=== PATIENT | male | born 1940 | race Caucasian/White ===

== ENCOUNTER 2019-03-03 11:00 | Day surgery (SDC) | payer MEDICARE, OTHER ==
[~2019-03-03] VITALS: Ht 167.6 cm; Wt 87.5 kg
[~2019-03-03 11:00] MED LIST: ASPIRIN EC81 MG PO; DILTIAZEM ER240 MG PO; GLUCOSAMINE1000 MG PO; HAWTHORN BERRY500 MG PO; HORSE CHESTNUT300 MG PO; LEVETIRACETAM500 MG PO; LEVOTHYROXINE75 MCG PO; LISINOPRIL10 MG PO; LUTEIN20 MG PO; MELATONIN10 MG PO; MULTI VITAMIN1 EACH PO; PRAVACHOL40 MG PO; SAW PALMETTO80 MG PO
[2019-03-03] MEDS ORDERED: ASPIR-LOW81 MG PO (12:22)
--- NOTE | 2019-03-03 15:44 | NUR ---
03/03/19 1544 Maureen Clancy 1532- PT ARRIVES TO PACU ALERT AND ORIENTED. RESP EVEN AND UNLABORED. OXYGEN SAT HIGH 90'S TO 100% ON 3L VIA NC. PT REPORTS NO NAUSEA OR PAIN. 1534- OXYGEN TITRATED OFF.
--- NOTE | 2019-03-04 16:41 | OR ---
[facility] [address], [place] [address] Signed DATE OF OPERATION: 03/03/2019 SURGEON: Jamaica Tovar MD PREOPERATIVE DIAGNOSES: 1. Prior history of villous adenoma and tubular adenoma, right colon and hyperplastic polyps elsewhere. 2. Family history of colon cancer (mother). POSTOPERATIVE DIAGNOSES: Scattered diverticulitis sigmoid, no evidence of recurrent or persistent polyps. PROCEDURE: Total colonoscopy to cecum. ANESTHESIA: Intravenous sedation, fentanyl 100 mcg, Versed 3 mg. INDICATION: This 78-year-old white man is a patient Dr. Rivera and underwent colonoscopy by me in 2015, at which time he was found to have a villous adenoma and tubular adenoma of the right colon and hyperplastic polyp elsewhere. He has a family history of colon cancer in his mother. He is symptom free currently. He is admitted at this time to undergo surveillance colonoscopy and understands the risks of bleeding, infection, perforation, and so on. FINDINGS: The prep was good. Complete colonoscopy was undertaken of the cecum. He has scattered small diverticula of the sigmoid, but no evidence of polyps, colitis, or cancer. DESCRIPTION OF PROCEDURE: The patient was brought to the endoscopy suite and placed in lateral decubitus position, given intravenous sedation to the point of slurred speech and nystagmus. Digital rectal examination was normal. An Olympus video colonoscope was passed in the rectum and manipulated throughout the colon ultimately intubating the cecum itself. Copious irrigation and other interventions were undertaken to thoroughly evaluate the cecum. The scope was then withdrawn and examination throughout showed no sign of abnormality other than diverticula of the sigmoid. Retroflexed view was normal as well. Pullout time was more Electronically Signed By: JAMAICA TOVAR MD 03/04/19 1641 PATIENT NAME: SHEKHAR ESPINOZA OPERATIVE REPORT DATE OF : 38 REPORT #: [id number] PHYSICIAN: JAMAICA TOVAR MD PCP: CONNIE RIVERA MD REPORT IS CONFIDENTIAL AND NOT TO BE RELEASED WITHOUT AUTHORIZATION [facility] [address], [place] [address] Signed than 15 minutes. Retroflexed view was normal as well. The scope was removed. The patient was taken to recovery room in good condition. CONCLUDING DIAGNOSIS: Scattered diverticula. No sign of recurrent or new polyps. PLAN: Standard recommendation would be to repeat in 5 years based on his family history of colon cancer and history of polyps. This recommendation is based on the presumption of good health in 5 years at the advanced age of 83 years, which he will be at that time. This will be left to the discretion of Dr. Rivera and the patient himself. MD MAYI Nick/DONOVAN /[id number] cc: Connie Rivera MD Copies: CONNIE RIVERA MD ~ Electronically Signed By: JAMAICA TOVAR MD 03/04/19 1641 PATIENT NAME: SHEKHAR ESPINOZA OPERATIVE REPORT DATE OF : 38 REPORT #: [id number] PHYSICIAN: JAMAICA TOVAR MD PCP: CONNIE RIVERA MD REPORT IS CONFIDENTIAL AND NOT TO BE RELEASED WITHOUT AUTHORIZATION
== END 2019-03-03 16:12 | disposition home or self-care (01) ==
LOC: DS 11:00 → OPS 11:00
PROVIDERS: Surgery
PROC: 0DJD8ZZ Inspection of Lower Intestinal Tract, Via Natural or Artificial Opening Endoscopic (ICD-10-PCS; principal; 2019-03-03 10:00)
DX: Z12.11 Encounter for screening for malignant neoplasm of colon (principal); K57.30 Diverticulosis of large intestine without perforation or abscess without bleeding; E78.5 Hyperlipidemia, unspecified; I10 Essential (primary) hypertension; E03.9 Hypothyroidism, unspecified; G47.30 Sleep apnea, unspecified; Z86.010 Personal history of colon polyps; Z80.0 Family history of malignant neoplasm of digestive organs; Z95.5 Presence of coronary angioplasty implant and graft; Z88.0 Allergy status to penicillin; Z98.890 Other specified postprocedural states
CPT/HCPCS: 99153; G0500; J2250; J3010; J7120